=== PATIENT | male | born 1975 | race Caucasian/White ===

== ENCOUNTER 2021-01-31 05:29 | Outpatient (RCR) | payer MEDICARE ==
[~2021-01-31] VITALS: Ht 170.2 cm; Wt 86.2 kg
[~2021-01-31 05:29] MED LIST: BACL20TA PO; OMEP20TA33 PO
[2021-02-02] MEDS ORDERED: PANT40TA2 PO (12:56)
== END 2021-02-02 11:40 | disposition home or self-care (01) ==
LOC: PREOP 05:29
PROVIDERS: ATTEND Surgery
DX: Z01.812 Encounter for preprocedural laboratory examination (principal); R13.10 Dysphagia, unspecified; Z20.822 Contact with and (suspected) exposure to COVID-19
CPT/HCPCS: 87635

== ENCOUNTER 2021-02-02 12:27 | Day surgery (SDC) | payer MEDICARE ==
[~2021-02-02] VITALS: Ht 170.2 cm; Wt 86.2 kg
[2021-02-02] MEDS ORDERED: LACTATED RINGERS 1,000 ML IV STA (12:39)
--- NOTE | 2021-02-02 12:55 | Progress Note-Pre Operative ---
Pre-Operative Progress Note H&P Reviewed The H&P was reviewed, patient examined and no changes noted. Date Seen by Provider: Feb 02, 2021 Time Seen by Provider: 12:30 Date H&P Reviewed: Feb 02, 2021 Time H&P Reviewed: 12:30 Pre-Operative Diagnosis: dysphagia, GERD MARCOS ROD MD Feb 02, 2021 12:55
[2021-02-02] MEDS ORDERED: PANT40TA2 PO (12:56)
--- NOTE | 2021-02-02 12:56 | Discharge Inst-Surgical ---
D/C Lap Instructions-KIDO New, Converted, or Re-Newed RX: RX on Chart Follow Up Activity as tolerated High Fiber Diet 25g or more per day Avoid Alcohol, Caffeine, Spicy [place] and Acid foods. Drink 64 fluid oz or more of fluids per day. Symptoms to Report: Fever over 101 degree F, Nausea/Vomiting If any problems/questions: Contact your physician or go to Emergency Room MARCOS ROD MD Feb 02, 2021 12:56
[2021-02-02] MEDS ORDERED: ONDANSETRON 4 MG (ZOFRAN) ORAL DISSOLVE TAB PO PRN (13:00)
[2021-02-02] MEDS ORDERED: ONDANSETRON 4 MG/2 ML (SDV) Z0FRAN IVP PRN (13:00)
[2021-02-02 14:04] VITALS: BP 112/81
[2021-02-02] MEDS ORDERED: proPOfol 200 MG/20 ML (DIPRIVAN) VIAL IV ONE ×2 (14:12)
[2021-02-02] MEDS ORDERED: MIDAZOLAM 2 MG/2 ML (VERSED) VIAL ONE (14:12)
[2021-02-02] MEDS ORDERED: HURRICAINE EXT TUBE (BENZOCAINE) ONE (14:22)
[2021-02-02] MEDS ORDERED: LIDOCAINE JELLY 2% 6 ML SYRINGE ONE (14:23)
[2021-02-02 15:00] VITALS: BP 119/76
[2021-02-02] MEDS ORDERED: LIDOCAINE JELLY 2% 6 ML SYRINGE TOP ONE (15:00)
[2021-02-02] MEDS ORDERED: HURRICAINE EXT TUBE (BENZOCAINE) XX ONE (15:00)
[2021-02-02 15:05] VITALS: BP_SYST 118; BP_SYST 140; BP_DIAS 89; BP_DIAS 91
--- NOTE | 2021-02-02 15:08 | Anesthesia-General Post-Op ---
MAC Patient Condition Mental Status/LOC: Same as Preop Cardiovascular: Satisfactory Nausea/Vomiting: Absent Respiratory: Satisfactory Pain: Controlled Complications: Absent Post Op Complications Complications None Follow Up Care/Instructions Patient Instructions None needed. Anesthesiology Discharge Order Discharge Order Patient is doing well, no complaints, stable vital signs, no apparent adverse anesthesia problems. JAGDEEP INFANTE DO Feb 02, 2021 15:08
[2021-02-02 15:31] VITALS: BP 111/68
--- NOTE | 2021-02-03 00:52 | OPERATIVE REPORT ---
DATE OF SERVICE: 02/02/2021 PREOPERATIVE DIAGNOSES: Dysphagia, gastroesophageal reflux disease. POSTOPERATIVE DIAGNOSES: Reflux esophagitis between stage II and III, distal esophageal stricture, small hiatal hernia 2 cm in size, moderate gastritis. PROCEDURE: EGD with biopsy and balloon dilatation. SURGEON: Marcos Rod MD. ANESTHESIA: Monitored anesthesia care. ESTIMATED BLOOD LOSS: Minimal. FINDINGS: Reflux esophagitis between stage II and III, distal esophageal stricture, small hiatal hernia 2 cm in size, moderate gastritis. DISPOSITION: The patient tolerated the procedure well. INDICATIONS: The patient is a 45-year-old male, who has had issues with gastroesophageal reflux disease; however, he has also had issues with dysphagia for specific types of foods including lean meats as well as dry bread and crackers. He has also had a longstanding history of gastroesophageal reflux disease and is currently on Prilosec. He does have some risk factors including smoking 2 packs a day for the past 30 years as well as taking in spicy, greasy, acidic foods and caffeinated beverages. DESCRIPTION OF PROCEDURE: The patient was brought to the endoscopy suite, laid in the left lateral decubitus position with head slightly elevated. After adequate IV pain and sedative medications and monitored anesthesia care, the mouthpiece was applied. The endoscope was then placed in the mouth, visualizing the pharynx and hypopharyngeal region. Vocal cords, epiglottis and vallecula identified and appeared to be normal. The endoscope was then gently intubated into the esophageal opening and esophagus insufflated. The endoscope was then advanced through the first, second, third portions of the esophagus at the level of GE junction, reflux esophagitis between stage II and III identified. A distal esophageal stricture was also identified. A biopsy was taken of the GE junction with forceps with visualization of good hemostasis. The endoscope was then advanced into the stomach and endoscope retroflexed, visualizing a small hiatal hernia approximately 2 cm in size. There was a moderate severity gastritis. No formal ulcerations, polyps, or any neoplasms. A biopsy was taken of the stomach antrum to rule out H. pylori with visualization of good hemostasis. The endoscope was then advanced to the pylorus and the first and second portion of the duodenum, which appeared normal with no distal obstructions. The endoscope was then slowly withdrawn while taking a second look and suctioning of residual air with no additional findings. The patient tolerated the procedure well. We will recommend the necessary lifestyle and diet accommodation, which includes the necessary lifestyle and dietary accommodation with small and more frequent meals, avoidance of eating at night as well as head elevation while lying supine. He also needs to avoid caffeinated beverages, spicy, greasy and acidic foods as well as caffeinated beverages. Cessation of smoking with also helped tremendously. He is currently on Prilosec and we will have him continue with that; however, we will also add Protonix 40 mg daily to be taken at a different time during the day. If he does have recurrence of dysphagia, we will have him follow up for repeat dilatation. Job ID: [id number] DocumentID: [id number] Dictated Date: 02/02/2021 15:06:43 Surgical Instrument Mechanic Date: 02/03/2021 00:51:54 Dictated By: MARCOS ROD MD
--- NOTE | 2021-02-08 14:59 | Physician Query Clarification ---
KASSIE SAENZ 02/08/21 1459: [id number] Proc Desc BodyOP Admission Canned Text Admission Date: 02/02/21 Discharge Date: 02/02/21 Procedures Procedures Performed Body of the Operative/Procedure Report: There is no detailed documentation specifying a BALLOON DILATION was done. Please clarify if this was done. [employer] Note Note From [employer] Please remember a lack of response to the above will prompt a phone page by [facility]Coding staff. In responding to this query, please exercise your independent professional judgment. The purpose of this communication is to more accurately reflect the complexity of your patients condition. The fact that a question is asked does not imply that any particular answer is desired or expected. Thank you for your timely response to this clarification. Requestors name: Kassie THIS PHYSICIAN QUERY FORM IS A PERMANENT PART OF THE MEDICAL RECORD MARCOS ROD MD 02/08/21 1557: [id number] Proc Desc BodyOP Physician Response Details: Detailed desc below Explanation Clinical Findings balloon dilatation done. will add addendum to operative report. KASSIE SAENZ Feb 08, 2021 14:59 MARCOS ROD MD Feb 08, 2021 15:57
--- NOTE | 2021-02-09 | OPERATIVE REPORT ---
DATE OF SERVICE: 02/02/2021 ADDENDUM The patient underwent an EGD on 02/02/2021. He presented with dysphagia as well as a longstanding history of gastroesophageal reflux disease. He was found to have a distal esophageal stricture, small hiatal hernia 2 cm in size as well as a moderate gastritis. The balloon was then placed in the stomach and pulled back to the area of the stricture. We then proceeded integrated stepwise fashion from 2 then 4, then 6 atmospheres of pressure with moderate resistance or 20 mm in luminal diameter and left this in place for approximately 60 seconds. The balloon was then desufflated and removed with visualization of good hemostasis as well as no mucosal tears. The endoscope was then slowly withdrawn while taking a second look and suctioning of residual air with no additional findings. The patient tolerated the procedure well. Job ID: [id number] DocumentID: [id number] Dictated Date: 02/08/2021 16:16:29 Slip Mixer Date: 02/08/2021 23:59:30 Dictated By: MARCOS ROD MD
== END 2021-02-02 15:33 | disposition home or self-care (01) ==
LOC: ENDO 12:27
PROVIDERS: ATTEND Surgery
DX: K21.00 Gastro-esophageal reflux disease with esophagitis, without bleeding (principal); K22.2 Esophageal obstruction; K44.9 Diaphragmatic hernia without obstruction or gangrene; K29.70 Gastritis, unspecified, without bleeding; F17.210 Nicotine dependence, cigarettes, uncomplicated; B48.8 Other specified mycoses; G47.33 Obstructive sleep apnea (adult) (pediatric); G82.20 Paraplegia, unspecified

== ENCOUNTER 2023-03-27 12:52 | Outpatient (CLI) | payer MEDICARE ==
[~2023-03-27] VITALS: Ht 170.2 cm; Wt 84.0 kg
[~2023-03-27 12:52] MED LIST changes: +PANT40TA2 PO
[2023-03-27] MEDS ORDERED: ATOR10TA66 PO (13:34)
[2023-03-27] MEDS ORDERED: MELO15TA39 PO (13:34)
== END 2023-03-27 13:47 | disposition home or self-care (01) ==
LOC: PREOP 12:52
PROVIDERS: ATTEND Surgery
DX: Z01.818 Encounter for other preprocedural examination (principal)